=== PATIENT | female | born 1960 | race Caucasian/White ===

== ENCOUNTER 2017-08-20 17:53 | Emergency (ER) | payer SELFPAY ==
[~2017-08-20] VITALS: Ht 160 cm; Wt 72.6 kg
[2017-08-20 20:23] VITALS: BP 169/112
== END 2017-08-20 20:23 | disposition home or self-care (01) ==
LOC: ED 17:53
DX: N61.0 Mastitis without abscess (principal)

== ENCOUNTER 2017-09-19 16:34 | Emergency (ER) | payer SELFPAY ==
[~2017-09-19] VITALS: Ht 162.6 cm; Wt 60.8 kg
[2017-09-19 17:36] VITALS: BP 135/73
== END 2017-09-19 17:36 | disposition home or self-care (01) ==
LOC: ED 16:34
DX: B86 Scabies (principal)

== ENCOUNTER 2017-09-28 13:03 | Emergency (ER) | payer MEDICAID ==
[2017-09-28 15:10] VITALS: BP 139/102
== END 2017-09-28 15:10 | disposition home or self-care (01) ==
LOC: ED 13:03
DX: Z02.79 Encounter for issue of other medical certificate (principal); B86 Scabies; I10 Essential (primary) hypertension; F17.210 Nicotine dependence, cigarettes, uncomplicated